=== PATIENT | female | born 1950 | race Caucasian/White ===

== ENCOUNTER → 2024-01-26 10:16 | Outpatient (BNVA) | payer MEDICARE, SELFPAY | PROVIDERS: PCP Family Medicine; Visit Provider Registered Nurse Neonatal Intensive Care | DX: J02.9 Acute pharyngitis, unspecified (principal) | CPT/HCPCS: 87880 ==

== ENCOUNTER → 2024-06-23 07:14 | Outpatient (BNVA) | payer MEDICARE, SELFPAY | PROVIDERS: PCP Family Medicine | DX: J02.9 Acute pharyngitis, unspecified (principal) | CPT/HCPCS: 87071; 87880 ==

== ENCOUNTER 2024-07-02 06:43 | Emergency (ER) | payer MEDICARE, SELFPAY ==
[2024-07-02 06:51] VITALS: BP 188/136; PULSE 77; RESP 18; TEMP 36.8; O2SAT 95; BMI 29.1
--- NOTE | 2024-07-02 07:27 | ED_ITS ---
HPI - URI/Sore Throat General: Chief Complaint: Upper Respiratory Infection Stated Complaint: coughing Time Seen by Provider: 07/02/24 06:50 History of Present Illness: 73 yo F is p/w persistent cough, pt has been ill for the past 2 weeks and has been diagnosed with bronchitis, initially treated with amoxicillin and approx 1 week ago started on levofloxacin, prednisone and nightly promethazine cough syrup. Her fevers and chills have subsided and she denies any recent fevers or c hills. no chest pain, no significant sob. she states that her cough used to be productive of yellow mucus but is now cleared up. she reports persistent coughing spells. she denies any associated vomiting diarrhea abd pain or urinary symptoms .she denies worsening of sob. she does report some right elbow tingling and right hand pain. Associated symptoms: Deny abdominal pain, chills, chest pain, fever(s), headache(s), nausea or vomiting Related Data Home Medications Medication Instructions Recorded Confirmed diltiazem HCl 120 mg 120 mg PO DAILY 01/26/24 06/26/24 capsule,extended release 24 hr esomeprazole magnesium 20 mg 20 mg PO DAILY 01/26/24 06/26/24 capsule,delayed release Previous Rx's Medication Instructions Recorded amoxicillin 500 mg tablet 500 mg PO BID 10 days #20 tabs 06/23/24 dexamethasone 4 mg tablet 8 mg (2 x 4 mg) PO DAILY 1 day #2 06/23/24 tabs albuterol sulfate 90 mcg/actuation 2 inh inhalation Q6H PRN shortness 06/26/24 aerosol inhaler of breath or wheezing #6.7 grams levofloxacin 500 mg tablet 500 mg PO DAILY 7 days #7 tabs 06/26/24 prednisone 20 mg tablet 60 mg (3 x 20 mg) PO DAILY 5 days 06/26/24 #15 tabs benzonatate 150 mg capsule 150 mg PO Q8H PRN cough #20 caps 07/02/24 Allergies Allergy/AdvReac Type Severity Reaction Status Date / Time No Known Allergies Allergy Unverified 06/26/24 17:08 Review of Systems Const: Reports: fatigue; Denies: fever(s), chills or body aches Eyes: Denies: change in vision or blurry vision ENMT: Denies: throat pain or nasal obstruction Card: Denies: chest pain, swelling of feet/ankles or dyspnea on exertion Resp: Reports: non-productive cough; Denies: dyspnea, productive cough, wheezing, pain on inspiration or hemoptysis GI: Denies: abdominal pain, nausea or vomiting Musc: Reports: extremity pain; Denies: neck pain, back pain, joint swelling, joint redness, limited range of motion or muscle cramps Skin/Breast: Denies: rash Neuro: Denies: headache(s), numbness in extremities, difficulty walking or dizziness Michael/Lymph: Denies: easy bruising or easy bleeding PFSH ED PFSH: Social History Smoking and tobacco/nicotine status: never used tobacco/nicotine Physical Exam Const: COMMON NORMALS: no acute distress, patient oriented x3 and alert GENERAL APPEARANCE: cooperative, comfortable and well kempt; not in distress HENMT: COMMON NORMALS: normocephalic, atraumatic, Normal nasal mucous membranes and turbinates present, moist oral mucous membranes and oropharynx normal HEAD & SCALP: normocephalic and atraumatic FACE & SINUS: normal facial exam and sinuses nontender NOSE: Normal nasal mucous membranes and tur binates present Eye: COMMON NORMALS: Equal, round and reactive pupils present, EOMs intact bilaterally and conjunctivae normal CONJUNCTIVA: Yes conjunctivae normal PUPIL: Yes Equal, round and reactive pupils present Neck/C-Spine: COMMON NORMALS: no lymphadenopathy and no JVD Resp: COMMON NORMALS: normal respiratory effort, No retractions and clear to auscultation bilaterally AUSCULTATION: clear to auscultation bilaterally Cardio: COMMON NORMALS: no JVD, regular rhythm, S1 normal heart sound present, S2 normal heart sound present and Peripheral pulses 2+ throughout RHYTHM: regular rhythm HEART SOUNDS: S1 normal heart sound present and S2 normal heart sound present PERIPHERAL PULSES: Peripheral pulses 2+ throughout and radial pulses present GI: COMMON NORMALS: Normal to inspection, nondistended, normoactive bowel sounds present, Soft to palpation and non-tender PALPATION: Yes Soft to palpation Extremity: COMMON NORMALS: normal to inspection NARRATIVE EXTREMITY EXAM: RUE no edema, no erythema , no swelling or induration, no bony tenderness and rom is normal, pt reports pain over palmar surfcae/tendon of right hand but no significant swelling or induration identified, limb is otherwise n/v/i Neuro: COMMON NORMALS: patient oriented x3, CN's II-XII intact bilaterally, no focal motor deficits and no sensory deficits noted SENSORIUM/ORIENTATION: Yes alert Psych: COMMON NORMALS: cooperative and activity/motor behavior normal APPEARANCE: Yes well kempt Skin: COMMON NORMALS: no rashes or lesions noted GENERAL SKIN EXAM: no rashes or lesions noted Course Vital Signs: Vital signs: Vital Signs Temperature 98.3 F 07/02/24 06:51 Pulse Rate 77 07/02/24 06:51 Respiratory Rate 18 07/02/24 06:51 Blood Pressure 188/136 07/02/24 06:51 Pulse Oximetry 95 07/02/24 06:51 Oxygen Delivery Me thod Room Air 07/02/24 06:51 MDM - URI/Sore Throat Medical Decision Making Pt is p/w persistent respiratory symptoms however appearst obe expectedly improving w/ resolution of fevers/chills and productiv cough. pt has a lingering cough which we will write for benzonatate Rx for , otherwise lungs ctabl and do not suspect persistent PNA or other infectious or cardiopulmonary process. pt with normal vitals and well appearing, pt reassured and discussed signs and symptoms to return to ED for such as chest pain, sob, worsening fevers or generalized weakness. otherwise for now rest, good nutrition and hydration and supportive care. staebl for d/c No radiology studies performed this visit Discharge Plan Discharge Patient Disposition: Home Clinical Impression: Cough Condition: Stable Prescriptions: New benzonatate 150 mg capsule 150 mg PO Q8H PRN (Reason: cough) Qty: 20 0RF Discontinued promethazine-DM 6.25-15 mg/5 mL syrup 10 ml PO Q6H PRN (Reason: cough) Qty: 473 0RF No Action amoxicillin 500 mg tablet 500 mg PO BID 10 Days Qty: 20 0RF dexamethasone 4 mg tablet 8 mg PO DAILY 1 Days Qty: 2 0RF diltiazem HCl 120 mg capsule,extended release 24hr 120 mg PO DAILY esomeprazole magnesium 20 mg capsule,delayed release(DR/EC) 20 mg PO DAILY levofloxacin 500 mg tablet 500 mg PO DAILY 7 Days Qty: 7 0RF prednisone 20 mg tablet 60 mg PO DAILY 5 Days Qty: 15 0RF albuterol sulfate 90 mcg/actuation HFA aerosol inhaler 2 inh inhalation Q6H PRN (Reason: shortness of breath or wheezing) Qty: 6.7 0RF Discharge Orders: Discharge ED (Routine); Ordered 07/02/24 Ordered By: Celia Guy Referrals: Geoffrey Pinon DO [Primary Care Provider] - Patient Instructions: Acute Cough (ED), Opioid Safety, Pain Management Coding Level of Care Code ED Heel [facility] for Darío Floyd
[2024-07-02 07:32] VITALS: BP 141/88; PULSE 60; O2SAT 92
== END 2024-07-02 07:33 | disposition home or self-care (01) ==
PROVIDERS: Emergency Provider Emergency Medicine; PCP Family Medicine
DX: R05.9 Cough, unspecified (principal)
CPT/HCPCS: 99283